=== PATIENT | male | born 1950 | race Caucasian/White ===

== ENCOUNTER 2018-11-14 10:06 | Emergency (ER) | payer OTHER ==
[2018-11-14 10:11] VITALS: BP 148/95; PULSE 72; TEMP 98.4; BMI 25.7
--- NOTE | 2018-11-14 10:44 | PDOC ---
History of Present Illness - General Chief Complaint: Sore Throat Stated Complaint: THROAT / RT EYE PAIN Time Seen by Provider: 11/14/18 10:28 History Source: Patient - History of Present Illness Timing/Duration: reports: other Severity: reports: mild Past History - Past Medical History Allergies/Adverse Reactions: Allergies Allergy/AdvReac Type Severity Reaction Status Date / Time No Known Allergies Allergy Verified 11/14/18 10:11 Home Medications: Ambulatory Orders NK [No Known Home Medication] 11/14/18 Cardiac Disorders: Yes COPD: No HTN: Yes - Suicide/Smoking/Psychosocial Hx Smoking History: Never smoked Review of Systems - Review of Systems Constitutional: No: Chills, Fever HEENTM: Yes: Throat Pain. No: Ear Pain Respiratory: Yes: Cough. No: Shortness of Breath, Wheezing, Hemoptysis Cardiac (ROS): No: Chest Pain *Physical Exam - Vital Signs Last Vital Signs Temp Pulse Resp BP Pulse Ox 98.4 F 72 18 148/95 100 11/14/18 10:09 11/14/18 10:09 11/14/18 10:09 11/14/18 10:09 11/14/18 10:09 - Physical Exam General Appearance: Yes: Appropriately Dressed. No: Apparent Distress HEENT: positive: Normal ENT Inspection, Normal Voice. negative: Scleral Icterus (R), Scleral Icterus (L) Neck: positive: Supple. negative: Lymphadenopathy (R), Lymphadenopathy (L) Respiratory/Chest: positive: Lungs Clear, Normal Breath Sounds. negative: Respiratory Distress Cardiovascular: positive: Regular Rate, S1, S2 Integumentary: positive: Dry, Warm Neurologic: positive: Fully Oriented, Alert, Normal Mood/Affect Medical Decision Making - Medical Decision Making 11/14/18 10:42 68 yo M, h/o CAD w/ stents, here w/ dry cough and sore throat x 4 days. No ear pain, sob, CP, f/c. Taking OTC pain meds w/ some relief per pt. Non-smoker see exam M/l viral uri Exam unremarkable -dc w/ supportive tx *DC/Admit/Observation/Transfer Diagnosis at time of Disposition: URI (upper respiratory infection) Qualifiers: URI type: unspecified viral URI Qualified Code(s): J06.9 - Acute upper respiratory infection, unspecified - Discharge Dispostion Disposition: HOME Condition at time of disposition: Good - Referrals - Patient Instructions Printed Discharge Instructions: DI for Viral Upper Respiratory Infection -- Adult - Post Discharge Activity
== END 2018-11-14 10:46 | disposition home or self-care (01) ==
LOC: JERFT 10:06
DX: J06.9 Acute upper respiratory infection, unspecified (principal); B97.89 Other viral agents as the cause of diseases classified elsewhere
CPT/HCPCS: 99281-25